=== PATIENT | male | born 1935 | race Caucasian/White ===

== ENCOUNTER 2016-10-06 12:16 | Inpatient (IN) | payer MEDICARE ==
[~2016-10-06] VITALS: Ht 198.1 cm; Wt 142.4 kg
[~2016-10-06 12:16] MED LIST: GLIPIZIDE XL5 MG PO; INDAPAMIDE2.5 MG PO; LISINOPRIL20 MG PO; LOVASTATIN40 MG PO; LUTEIN20 M1 PO; METFORMIN500 MG PO; SERTRALINE100 MG PO
[2016-10-06] MEDS ORDERED: GLUCOTROL XL10 MG PO (13:24)
[2016-10-06 13:36] VITALS: BP 116/53; PULSE 76; TEMP 98
[2016-10-06] MEDS ORDERED: SINEMET 25/101 UDTAB PO (14:28)
[2016-10-06] MEDS ORDERED: LASIX 20MG TABL20 MG PO (14:29)
[2016-10-06] MEDS ORDERED: ASPIRIN 81M81 MG/TA2 PO (14:30)
[2016-10-06] MEDS ORDERED: MELATONIN5 M1 SL (14:32)
[2016-10-06] MEDS ORDERED: ARICEPT10 MG PO (14:32)
[2016-10-06] MEDS ORDERED: MIRAPEX 1MG PO (14:33)
[2016-10-06] MEDS ORDERED: WELLBUTRIN 75MG75 MG PO (14:33)
[2016-10-06] MEDS ORDERED: REQUIP2 MG PO (14:34)
[2016-10-06] MEDS ORDERED: DESYREL 50MG50 MG PO (14:34)
[2016-10-06] MEDS ORDERED: BACTRIM DS 8001 TAB PO (14:35)
[2016-10-06] MEDS ORDERED: LUTEIN20 M1 PO (14:35)
[2016-10-06 15:23] LABS: BASO % 0.3 % (0.0-2.0); EOS # 0.1 (0.0-0.7); EOS % 0.6 % (0-4.0); GRAN # 8.7 (1.4-6.5); GRAN % 80.6 % (42.2-75.2); HEMATOCRIT 48.7 % (42.0-52.0); HEMOGLOBIN 16.1 g/dl (13.5-18.0); LYMPH # 0.9 (1.2-3.4); LYMPH % 8.4 % (20.0-51.0); MEAN CELL VOLUME 94 fl (80.0-100.0); MEAN CORPUSCULAR HEMOGLOBIN 31 pg (27.0-31.0); MEAN CORPUSCULAR HGB CONC 33 g/dl (33.0-37.0); MEAN PLATELET VOLUME 9.6 fl (7.4-10.4); MONO % 9.4 % (1.7-9.3); PLATELET COUNT 142 K/mm3 (130-400); RED BLOOD COUNT 5.18 M/mm3 (4.20-5.60); REDCELL DISTRIBUTION WIDTH-CV 12.9 % (11.5-14.5); WHITE BLOOD COUNT 10.7 K/mm3 (4.8-10.8)
[2016-10-06 15:36] LABS: ADJUSTED CALCIUM 8.7 mg/dL (8.4-10.2); ALBUMIN 3.7 gm/dL (3.5-5.0); BILIRUBIN,TOTAL 0.8 mg/dL (0.0-1.0); CALCIUM 8.5 mg/dL (8.4-10.2); CREATININE, serum 1.4 mg/dL (0.66-1.25); POTASSIUM 4.1 mmol/L (3.4-5.0); TOTAL PROTEIN 7.2 gm/dL (6.4-8.2)
[2016-10-06 15:54] LABS: C-REACTIVE PROTEIN 25.4 mg/dL (0.0-0.9)
[2016-10-06 16:20] VITALS: BP 121/68; PULSE 61; TEMP 98
[2016-10-06 18:14] LABS: ERYTHROCYTE SEDIMENTATION RATE 118 mm/hr (0-30)
[2016-10-06 19:27] VITALS: BP 111/48; PULSE 70; TEMP 99.7
[2016-10-06 23:09] VITALS: BP 83/30; PULSE 74; TEMP 98.8
[2016-10-06 23:10] LABS: PH 5 (5-8); SQUAMOUS EPITHELIAL 0-2 /hpf; URINE APPEARANCE Clear; URINE BACTERIA None Seen /hpf; URINE BILIRUBIN Negative (NEGATIVE); URINE BLOOD 1+ (NEGATIVE); URINE COLOR Yellow; URINE GLUCOSE Negative (NEGATIVE); URINE KETONE Negative (NEGATIVE); URINE UROBILINOGEN Negative (NEGATIVE); URINE WBC 0-2 /hpf
[2016-10-06 23:38] VITALS: BP 108/48; PULSE 74
[2016-10-07 03:10] VITALS: BP 110/60; PULSE 88; TEMP 98.8
[2016-10-07 07:21] LABS: BASO % 0.3 % (0.0-2.0); EOS # 0.1 (0.0-0.7); EOS % 0.5 % (0-4.0); GRAN # 10.3 (1.4-6.5); GRAN % 86.7 % (42.2-75.2); LYMPH # 0.5 (1.2-3.4); LYMPH % 4.3 % (20.0-51.0); MEAN CELL VOLUME 95 fl (80.0-100.0); MEAN CORPUSCULAR HGB CONC 33 g/dl (33.0-37.0); MEAN PLATELET VOLUME 9.1 fl (7.4-10.4); MONO # 0.9 (0.1-0.6); MONO % 7.4 % (1.7-9.3); PLATELET COUNT 205 K/mm3 (130-400); RED BLOOD COUNT 3.54 M/mm3 (4.20-5.60); REDCELL DISTRIBUTION WIDTH-CV 13.1 % (11.5-14.5); WHITE BLOOD COUNT 11.8 K/mm3 (4.8-10.8)
[2016-10-07 07:23] LABS: HEMATOCRIT 33.6 % (42.0-52.0); HEMOGLOBIN 11.1 g/dl (13.5-18.0); MEAN CORPUSCULAR HEMOGLOBIN 31 pg (27.0-31.0)
[2016-10-07 07:30] LABS: ADJUSTED CALCIUM 8.6 mg/dL (8.4-10.2); ALBUMIN 3.3 gm/dL (3.5-5.0); BILIRUBIN,TOTAL 0.8 mg/dL (0.0-1.0); CREATININE, serum 1.5 mg/dL (0.66-1.25); POTASSIUM 3.7 mmol/L (3.4-5.0); TOTAL PROTEIN 6.4 gm/dL (6.4-8.2)
[2016-10-07 07:45] VITALS: BP 129/48; PULSE 74; TEMP 98.8
[2016-10-07 11:48] VITALS: BP 102/47; PULSE 68; TEMP 97.6
[2016-10-07 17:45] VITALS: BP 131/65; PULSE 57; TEMP 98.4
[2016-10-07 21:16] VITALS: BP 104/44; PULSE 63; TEMP 98.1
[2016-10-07] MEDS ORDERED: MELATONIN5 M1 PO (21:40)
[2016-10-07 22:37] VITALS: BP 94/40; PULSE 62; TEMP 98.5
[2016-10-08 09:13] VITALS: BP 114/54; PULSE 65; TEMP 96.5
[2016-10-08 14:12] VITALS: BP 141/76; PULSE 83
[2016-10-08 19:16] VITALS: BP 160/69; PULSE 65; TEMP 97.7
[2016-10-08 23:44] VITALS: BP 121/43; PULSE 80; TEMP 98.6
[2016-10-09 03:42] VITALS: BP 149/67; PULSE 57; TEMP 98.6
[2016-10-09 07:20] VITALS: BP 155/75; PULSE 68; TEMP 97.2
[2016-10-09 11:00] VITALS: BP 173/78; PULSE 91; TEMP 97.8
[2016-10-09 14:07] VITALS: BP 158/69; PULSE 74
[2016-10-09 15:08] VITALS: BP 115/63; PULSE 60; TEMP 97.9
[2016-10-09 20:25] VITALS: BP 144/62; PULSE 65; TEMP 98.3
[2016-10-10 00:48] VITALS: BP 150/71; PULSE 88; TEMP 97.7
[2016-10-10 04:54] VITALS: BP 140/89; PULSE 77; TEMP 97.8
[2016-10-10 07:26] VITALS: BP 155/77; PULSE 95; TEMP 97.6
[2016-10-10 07:44] LABS: ADD PATHOLOGY DIFF REVIEW NO
[2016-10-10 07:59] LABS: MEAN CELL VOLUME 96 fl (80.0-100.0); MEAN CORPUSCULAR HGB CONC 33 g/dl (33.0-37.0); MEAN PLATELET VOLUME 8.8 fl (7.4-10.4); PLATELET COUNT 222 K/mm3 (130-400); RED BLOOD COUNT 3.74 M/mm3 (4.20-5.60); REDCELL DISTRIBUTION WIDTH-CV 13.3 % (11.5-14.5); WHITE BLOOD COUNT 10.9 K/mm3 (4.8-10.8)
[2016-10-10 08:17] LABS: HEMATOCRIT 35.7 % (42.0-52.0); HEMOGLOBIN 11.6 g/dl (13.5-18.0); MEAN CORPUSCULAR HEMOGLOBIN 31 pg (27.0-31.0)
[2016-10-10 08:22] LABS: CALCIUM 8.5 mg/dL (8.4-10.2); CREATININE, serum 1.02 mg/dL (0.66-1.25); MAGNESIUM 2.1 mg/dL (1.6-2.3); POTASSIUM 4.3 mmol/L (3.4-5.0)
[2016-10-10 09:04] LABS: ERYTHROCYTE SEDIMENTATION RATE 61 mm/hr (0-30)
[2016-10-10 10:51] LABS: C-REACTIVE PROTEIN 14.7 mg/dL (0.0-0.9)
[2016-10-10 12:00] VITALS: BP 131/71; PULSE 71; TEMP 98
[2016-10-10 14:17] LABS: BAND 3 % (0-10); NEUTROPHILS 76 % (42.0-75.2); TOTAL CELLS COUNTED 100
[2016-10-10 14:19] LABS: PLATELET ESTIMATE NORMAL (NORMAL)
[2016-10-10 16:04] VITALS: BP 129/69; PULSE 80
[2016-10-10 20:43] VITALS: BP 166/78; PULSE 72; TEMP 97
[2016-10-11] VITALS (10 sets, daily range): BP systolic 126–168; BP diastolic 71–89; PULSE 66–110; TEMP 97.7–98.7
[2016-10-11 06:37] LABS: MEAN CELL VOLUME 95 fl (80.0-100.0); MEAN CORPUSCULAR HGB CONC 33 g/dl (33.0-37.0); MEAN PLATELET VOLUME 8.8 fl (7.4-10.4); PLATELET COUNT 230 K/mm3 (130-400); RED BLOOD COUNT 3.67 M/mm3 (4.20-5.60); REDCELL DISTRIBUTION WIDTH-CV 13.5 % (11.5-14.5); WHITE BLOOD COUNT 11.8 K/mm3 (4.8-10.8)
[2016-10-11 06:46] LABS: ADD PATHOLOGY DIFF REVIEW NO; HEMOGLOBIN 11.4 g/dl (13.5-18.0); MEAN CORPUSCULAR HEMOGLOBIN 31 pg (27.0-31.0)
[2016-10-11 07:09] LABS: CALCIUM 8.8 mg/dL (8.4-10.2); CREATININE, serum 1.01 mg/dL (0.66-1.25); POTASSIUM 4.1 mmol/L (3.4-5.0)
[2016-10-11 07:29] LABS: VANCOMYCIN TROUGH 16.72 ug/mL (7.00-20.00)
[2016-10-11 07:50] LABS: C-REACTIVE PROTEIN 20.1 mg/dL (0.0-0.9)
[2016-10-11 08:58] LABS: BAND 7 % (0-10); BASOPHIL 1 % (0-2); EOSINOPHIL 2 % (0-4); METAMYELOCYTE 1 % (0-0); NEUTROPHILS 67 % (42.0-75.2); TOTAL CELLS COUNTED 100
[2016-10-11 09:20] LABS: ERYTHROCYTE SEDIMENTATION RATE 117 mm/hr (0-30)
[2016-10-12 04:10] VITALS: BP 125/61; PULSE 96; TEMP 98.3
[2016-10-12 07:37] VITALS: BP 132/70; PULSE 89; TEMP 98.1
[2016-10-12 08:15] LABS: HEMOGLOBIN 11.4 g/dl (13.5-18.0)
[2016-10-12 08:16] LABS: HEMATOCRIT 36.4 % (42.0-52.0)
[2016-10-12 11:21] VITALS: BP 126/58; PULSE 69; TEMP 97.4
[2016-10-12 15:18] VITALS: BP 111/54; PULSE 71
[2016-10-12 19:49] VITALS: BP 121/53; PULSE 80; TEMP 98.6
[2016-10-13 00:34] VITALS: BP 136/69; PULSE 77; TEMP 99
[2016-10-13 04:33] VITALS: BP 106/40; PULSE 72; TEMP 98.3
[2016-10-13 07:40] VITALS: BP 115/57; PULSE 71; TEMP 98.3
[2016-10-13 08:09] LABS: ALBUMIN 3.3 gm/dL (3.5-5.0); BILIRUBIN,TOTAL 0.6 mg/dL (0.0-1.0); CALCIUM 8.4 mg/dL (8.4-10.2); CREATININE, serum 1.17 mg/dL (0.66-1.25); POTASSIUM 4.4 mmol/L (3.4-5.0); TOTAL PROTEIN 6.5 gm/dL (6.4-8.2)
[2016-10-13] MEDS ORDERED: VANCOCIN HCL1 GM IV (08:10)
[2016-10-13] MEDS ORDERED: NORCO 325 MG-7.1 TAB PO (08:11)
[2016-10-13] MEDS ORDERED: ASPI325T6 PO (08:11)
[2016-10-13 08:12] LABS: MEAN CELL VOLUME 99 fl (80.0-100.0); MEAN CORPUSCULAR HGB CONC 31 g/dl (33.0-37.0); MEAN PLATELET VOLUME 9.1 fl (7.4-10.4); PLATELET COUNT 213 K/mm3 (130-400); RED BLOOD COUNT 3.49 M/mm3 (4.20-5.60); REDCELL DISTRIBUTION WIDTH-CV 13.4 % (11.5-14.5); WHITE BLOOD COUNT 11.9 K/mm3 (4.8-10.8)
[2016-10-13] MEDS ORDERED: HCTZ12.5TAB PO (08:12)
[2016-10-13 08:28] LABS: HEMATOCRIT 34.7 % (42.0-52.0); HEMOGLOBIN 10.8 g/dl (13.5-18.0); MEAN CORPUSCULAR HEMOGLOBIN 31 pg (27.0-31.0)
[2016-10-13 08:30] LABS: ADD PATHOLOGY DIFF REVIEW NO
[2016-10-13 10:25] LABS: BAND 15 % (0-10); BASOPHIL 1 % (0-2); EOSINOPHIL 3 % (0-4); MYELOCYTE 2 % (0-0); NEUTROPHILS 63 % (42.0-75.2); TOTAL CELLS COUNTED 100
[2016-10-13 10:26] LABS: PLATELET ESTIMATE NORMAL (NORMAL)
[2016-10-13 11:51] VITALS: BP 115/57; PULSE 71; TEMP 98.3
== END 2016-10-13 13:06 | disposition swing bed (61) | DRG 617 ==
LOC: MEDICAL 12:16 → EDBD 10-13 13:06 → MEDICAL 10-13 13:06
PROVIDERS: Internal Medicine; Orthopaedic Surgery; Physician Assistant
PROC: 0Y6X0Z1 Detachment at Right 5th Toe, High, Open Approach (ICD-10-PCS; 2016-10-11)
PROC: 0Y6V0Z1 Detachment at Right 4th Toe, High, Open Approach (ICD-10-PCS; principal; 2016-10-11 15:00)
DX: E11.69 Type 2 diabetes mellitus with other specified complication (principal); M86.171 Other acute osteomyelitis, right ankle and foot; L03.115 Cellulitis of right lower limb; I70.25 Atherosclerosis of native arteries of other extremities with ulceration; Z66 Do not resuscitate; B95.61 Methicillin susceptible Staphylococcus aureus infection as the cause of diseases classified elsewhere; B95.2 Enterococcus as the cause of diseases classified elsewhere; E11.621 Type 2 diabetes mellitus with foot ulcer; L97.519 Non-pressure chronic ulcer of other part of right foot with unspecified severity; G20 Parkinson's disease; I10 Essential (primary) hypertension; F03.90 Unspecified dementia, unspecified severity, without behavioral disturbance, psychotic disturbance, mood disturbance, and anxiety; N17.9 Acute kidney failure, unspecified; I12.9 Hypertensive chronic kidney disease with stage 1 through stage 4 chronic kidney disease, or unspecified chronic kidney disease; E11.22 Type 2 diabetes mellitus with diabetic chronic kidney disease; N18.9 Chronic kidney disease, unspecified; I87.8 Other specified disorders of veins
CPT/HCPCS: 99222-AI; 99232-AI; 99233-AI; 99239; A9284; C1751; J0713; J1644; J1815; J2250; J2405; J2543; J2704; J2765; J3010; J3370; J7030; J7050

== ENCOUNTER → 2016-10-18 | Outpatient (REF) ==
[~2016-10-18] MED LIST changes: +ARICEPT10 MG PO; +ASPI325T6 PO; +ASPIRIN 81M81 MG/TA2 PO; +BACTRIM DS 8001 TAB PO; +DESYREL 50MG50 MG PO; +GLUCOTROL XL10 MG PO; +HCTZ12.5TAB PO; +LASIX 20MG TABL20 MG PO; +MELATONIN5 M1 PO; +MELATONIN5 M1 SL; +MIRAPEX 1MG PO; +NORCO 325 MG-7.1 TAB PO; +REQUIP2 MG PO; +SINEMET 25/101 UDTAB PO; +VANCOCIN HCL1 GM IV; +WELLBUTRIN 75MG75 MG PO
[2016-10-18 12:22] LABS: C-REACTIVE PROTEIN 5.3 mg/dL (0.0-0.9)
[2016-10-18 12:24] LABS: VANCOMYCIN TROUGH 18.3 ug/mL (7.00-20.00)
== END ==
LOC: EDBD 11:25 → ZLAB.WCH 11:25
PROVIDERS: Physician Assistant
DX: Z01.89 Encounter for other specified special examinations (principal)

== ENCOUNTER → 2016-10-23 | Outpatient (REF) | LOC: ZAIV 06:20 → EDBD 10:29 | DX: Z01.89 Encounter for other specified special examinations (principal) ==

== ENCOUNTER → 2016-10-25 | Outpatient (REF) ==
[2016-10-25 11:32] LABS: C-REACTIVE PROTEIN 2.9 mg/dL (0.0-0.9)
[2016-10-25 11:40] LABS: VANCOMYCIN TROUGH 28.93 ug/mL (7.00-20.00)
== END ==
LOC: ZLAB.WCH 07:30 → EDBD 07:30
PROVIDERS: Physician Assistant
DX: Z01.89 Encounter for other specified special examinations (principal)

== ENCOUNTER → 2016-10-28 | Outpatient (REF) | LOC: ZLAB.WCH 10:48 → EDBD 10:48 | DX: Z01.89 Encounter for other specified special examinations (principal) ==

== ENCOUNTER → 2016-11-01 | Outpatient (REF) ==
[2016-11-01 12:00] LABS: VANCOMYCIN TROUGH 21.35 ug/mL (7.00-20.00)
== END ==
LOC: ZLAB.WCH 11:35 → EDBD 11:35
DX: Z01.89 Encounter for other specified special examinations (principal)

== ENCOUNTER → 2016-11-03 | Outpatient (REF) | LOC: ZLAB.WCH 11:04 → EDBD 11:04 | DX: Z01.89 Encounter for other specified special examinations (principal) ==

== ENCOUNTER → 2016-11-08 | Outpatient (REF) ==
[2016-11-08 12:29] LABS: C-REACTIVE PROTEIN 1.4 mg/dL (0.0-0.9)
[2016-11-08 12:32] LABS: VANCOMYCIN TROUGH 17.33 ug/mL (7.00-20.00)
== END ==
LOC: ZLAB.WCH 11:17 → EDBD 11:17
PROVIDERS: Physician Assistant
DX: Z01.89 Encounter for other specified special examinations (principal)

== ENCOUNTER → 2016-11-15 | Outpatient (REF) ==
[2016-11-15 20:38] LABS: VANCOMYCIN TROUGH 16.16 ug/mL (7.00-20.00)
== END ==
LOC: ZLAB.WCH 20:36
PROVIDERS: Family Medicine
DX: Z01.89 Encounter for other specified special examinations (principal)

== ENCOUNTER → 2016-11-22 | Outpatient (REF) ==
[2016-11-22 18:46] LABS: C-REACTIVE PROTEIN 0.9 mg/dL (0.0-0.9)
[2016-11-22 18:47] LABS: VANCOMYCIN TROUGH 16.6 ug/mL (7.00-20.00)
== END ==
LOC: EDBD 18:08 → ZLAB.WCH 18:08
PROVIDERS: Physician Assistant
DX: Z01.89 Encounter for other specified special examinations (principal)

== ENCOUNTER 2017-04-02 16:47 | Emergency (ER) | payer MEDICARE ==
[~2017-04-02] VITALS: Ht 198.1 cm; Wt 149.1 kg
[2017-04-02 16:50] VITALS: TEMP 98.1
[2017-04-02] MEDS ORDERED: CANA100T PO (17:21)
[2017-04-02 17:49] LABS: BASO # 0.1 (0.0-0.2); BASO % 0.7 % (0.0-2.0); EOS # 0.3 (0.0-0.7); EOS % 4.2 % (0-4.0); GRAN # 4.5 (1.4-6.5); GRAN % 64.5 % (42.2-75.2); HEMATOCRIT 38.8 % (42.0-52.0); HEMOGLOBIN 12.6 g/dl (13.5-18.0); LYMPH # 1.4 (1.2-3.4); LYMPH % 19.5 % (20.0-51.0); MEAN CELL VOLUME 96 fl (80.0-100.0); MEAN CORPUSCULAR HEMOGLOBIN 31 pg (27.0-31.0); MEAN CORPUSCULAR HGB CONC 33 g/dl (33.0-37.0); MEAN PLATELET VOLUME 9.2 fl (7.4-10.4); MONO # 0.8 (0.1-0.6); MONO % 10.8 % (1.7-9.3); PLATELET COUNT 164 K/mm3 (130-400); RED BLOOD COUNT 4.06 M/mm3 (4.20-5.60); REDCELL DISTRIBUTION WIDTH-CV 13.5 % (11.5-14.5); WHITE BLOOD COUNT 6.9 K/mm3 (4.8-10.8)
[2017-04-02 17:56] LABS: ADJUSTED CALCIUM 8.8 mg/dL (8.4-10.2); ALANINE AMINOTRANSFERASE 13 U/L (21-72); ALBUMIN 4.1 gm/dL (3.5-5.0); ALKALINE PHOSPHATASE 84 U/L (50-136); ANION GAP 10 mmol/L (7-16); BILIRUBIN,TOTAL 0.8 mg/dL (0.0-1.0); BLOOD UREA NITROGEN 30 mg/dL (9-20); CALCIUM 8.9 mg/dL (8.4-10.2); CARBON DIOXIDE 29 mmol/L (22-30); CHLORIDE 101 mmol/L (98-107); CREATININE, serum 1.19 mg/dL (0.66-1.25); GLUCOSE 168 mg/dL (74-106); POTASSIUM 4.4 mmol/L (3.4-5.0); SODIUM 139 mmol/L (137-145); TOTAL PROTEIN 7.4 gm/dL (6.4-8.2)
[2017-04-02 17:57] LABS: ACETAMINOPHEN < 10 ug/mL (10-30); SALICYLATE < 1.0 mg/dL
[2017-04-02 19:04] LABS: AMPHETAMINE URINE NEGATIVE; BARBITURATES URINE NEGATIVE; BENZODIAZEPINES URINE NEGATIVE; BUPRENORPHINE URINE NEGATIVE; METHADONE URINE NEGATIVE; OPIATES URINE NEGATIVE; OXYCODONE URINE NEGATIVE; PHENCYCLIDINE URINE NEGATIVE; PROPOXYPHENE URINE NEGATIVE; THC CANNABINOIDS URINE NEGATIVE
[2017-04-02 23:30] VITALS: BP 119/75; PULSE 56
== END 2017-04-02 23:30 | disposition home or self-care (01) ==
LOC: COL.ER 16:47
PROVIDERS: Emergency Medicine
DX: R45.851 Suicidal ideations (principal); E11.9 Type 2 diabetes mellitus without complications; G20 Parkinson's disease; I10 Essential (primary) hypertension; E78.5 Hyperlipidemia, unspecified; Z79.82 Long term (current) use of aspirin; Z79.84 Long term (current) use of oral hypoglycemic drugs

== ENCOUNTER 2018-06-22 08:36 | Emergency (ER) | payer MEDICARE ==
[~2018-06-22] VITALS: Ht 195.6 cm; Wt 147.7 kg
[~2018-06-22 08:36] MED LIST changes: +CANA100T PO
[2018-06-22 08:47] VITALS: TEMP 98.1
[2018-06-22 09:43] LABS: ALBUMIN 3.9 gm/dL (3.5-5.0); C-REACTIVE PROTEIN 2.1 mg/dL (0.0-0.9); CREATININE, serum 1.01 mg/dL (0.66-1.25); TOTAL PROTEIN 7.2 gm/dL (6.4-8.2)
[2018-06-22 09:47] LABS: BASO % 0.4 % (0.0-2.0); EOS # 0.1 (0.0-0.7); EOS % 1.4 % (0-4.0); GRAN # 7.4 (1.4-6.5); GRAN % 76.6 % (42.2-75.2); HEMATOCRIT 38.6 % (42.0-52.0); HEMOGLOBIN 12.6 g/dl (13.5-18.0); LYMPH # 1.1 (1.2-3.4); LYMPH % 11.8 % (20.0-51.0); MEAN CELL VOLUME 96 fl (80.0-100.0); MEAN CORPUSCULAR HEMOGLOBIN 31 pg (27.0-31.0); MEAN CORPUSCULAR HGB CONC 33 g/dl (33.0-37.0); MEAN PLATELET VOLUME 9.3 fl (7.4-10.4); MONO # 0.9 (0.1-0.6); MONO % 9.4 % (1.7-9.3); PLATELET COUNT 179 K/mm3 (130-400); RED BLOOD COUNT 4.03 M/mm3 (4.20-5.60); REDCELL DISTRIBUTION WIDTH-CV 13.2 % (11.5-14.5)
[2018-06-22 10:02] LABS: COLLECTION METHOD CLEAN CATCH
[2018-06-22 10:11] LABS: MUCOUS Present /lpf; PH 5 (5-8); SQUAMOUS EPITHELIAL 0-2 /hpf; URINE APPEARANCE Clear; URINE BACTERIA Rare /hpf; URINE BILIRUBIN Negative (NEGATIVE); URINE BLOOD Negative (NEGATIVE); URINE COLOR Yellow; URINE GLUCOSE Negative (NEGATIVE); URINE KETONE Negative (NEGATIVE); URINE LEUKOCYTE ESTERASE 1+ (NEGATIVE); URINE NITRATE Negative (NEGATIVE); URINE PROTEIN(semi-quant) 1+ (NEGATIVE); URINE RBC 0-2 /hpf; URINE UROBILINOGEN Negative (NEGATIVE)
[2018-06-22] MEDS ORDERED: EC-NAPROSYN375 MG PO (10:33)
[2018-06-22] MEDS ORDERED: NORCO 325 MG-7.1 TAB PO (10:33)
[2018-06-22 10:40] VITALS: BP 132/80; PULSE 86
== END 2018-06-22 11:12 | disposition home or self-care (01) ==
LOC: COL.ER 08:36
PROVIDERS: Physician Assistant
DX: M54.10 Radiculopathy, site unspecified (principal); E11.9 Type 2 diabetes mellitus without complications; I10 Essential (primary) hypertension; F32.9 Major depressive disorder, single episode, unspecified; F41.9 Anxiety disorder, unspecified; G20 Parkinson's disease; Z98.890 Other specified postprocedural states; Z88.0 Allergy status to penicillin; Z79.82 Long term (current) use of aspirin; Z79.84 Long term (current) use of oral hypoglycemic drugs
CPT/HCPCS: J1885

== ENCOUNTER 2018-08-29 08:09 | Inpatient (IN) | payer MEDICARE ==
[~2018-08-29] VITALS: Ht 198.1 cm; Wt 148.8 kg
[~2018-08-29 08:09] MED LIST changes: +EC-NAPROSYN375 MG PO
[2018-08-30 08:00] VITALS: BP 107/55; PULSE 85; TEMP 99.2
--- NOTE | 2018-08-30 08:00 | NUR ---
Pt AAOx3 in bed stating feeling weaker in the upper extremities while moving and raising arms - Hospitalist team aware. Call light within reach, no stated concerns at this time
[2018-08-30 12:00] VITALS: BP 107/59; PULSE 94; TEMP 98.6
[2018-08-30 17:23] LABS: ARTERIAL BLD GAS O2 SATURATION 93.6 % (92-100); ARTERIAL BLD GAS TCO2 CT 31.2; ARTERIAL BLOOD GAS BASE EXCESS 4.6 (-2-2); ARTERIAL BLOOD GAS HCO3 29.7 meq/L (22-26); ARTERIAL BLOOD GAS PCO2 46.7 mmHg (35-45); ARTERIAL BLOOD GAS PO2 71.2 mmHg (80-100); ARTERIAL BLOOD GAS pH 7.42 (7.35-7.45)
[2018-08-30 18:05] LABS: ALBUMIN 4.1 gm/dL (3.5-5.0); BILIRUBIN,TOTAL 0.9 mg/dL (0.0-1.0); CALCIUM 8.7 mg/dL (8.4-10.2); CREATININE, serum 1.06 mg/dL (0.66-1.25); POTASSIUM 4.3 mmol/L (3.4-5.0); TOTAL PROTEIN 7.6 gm/dL (6.4-8.2)
[2018-08-30 18:06] LABS: CALCIUM 8.1 mg/dL (8.4-10.2); CREATININE, serum 0.99 mg/dL (0.66-1.25); MAGNESIUM 2.1 mg/dL (1.6-2.3); POTASSIUM 4.3 mmol/L (3.4-5.0); TSH w REFLEX 1.07 uIU/mL (0.465-4.680)
[2018-08-30 19:14] VITALS: BP 110/77; PULSE 84; TEMP 98.3
--- NOTE | 2018-08-30 20:00 | NUR ---
PT IN BED WITH HOB AT 45 DEGREE ANGLE. PT HAS DAUGHTER IN ROOM. PT HAD INCONTINENT BOWEL MOVEMENT AND VOIDED. COMPLETE BED CHANGE DONE, WELL , CLEANING PT AND CHANGED GOWN. PT HAS EXP WHEEZING, HAS O2 ON AT 3L/NC. PT DENIES PAIN OR DISCOMFORT. NO FURTHER NEEDS AT THIS TIME.
[2018-08-30 20:54] LABS: TROPONIN-I 0.04 ng/mL (0.000-0.035)
[2018-08-30 22:11] LABS: BASO % 0.2 % (0.0-2.0); EOS # 0.1 (0.0-0.7); EOS % 0.7 % (0-4.0); GRAN # 6.7 (1.4-6.5); GRAN % 77.2 % (42.2-75.2); HEMATOCRIT 31.4 % (42.0-52.0); LYMPH # 0.9 (1.2-3.4); LYMPH % 9.9 % (20.0-51.0); MEAN CELL VOLUME 98 fl (80.0-100.0); MEAN CORPUSCULAR HEMOGLOBIN 31 pg (27.0-31.0); MEAN CORPUSCULAR HGB CONC 32 g/dl (33.0-37.0); MEAN PLATELET VOLUME 9.5 fl (7.4-10.4); MONO % 11.5 % (1.7-9.3); PLATELET COUNT 171 K/mm3 (130-400); REDCELL DISTRIBUTION WIDTH-CV 13.3 % (11.5-14.5)
[2018-08-30 22:14] LABS: BASO % 0.4 % (0.0-2.0); EOS # 0.1 (0.0-0.7); EOS % 0.6 % (0-4.0); GRAN # 8.2 (1.4-6.5); GRAN % 78.4 % (42.2-75.2); HEMATOCRIT 36.7 % (42.0-52.0); HEMOGLOBIN 11.4 g/dl (13.5-18.0); LYMPH % 9.4 % (20.0-51.0); MEAN CELL VOLUME 99 fl (80.0-100.0); MEAN CORPUSCULAR HEMOGLOBIN 31 pg (27.0-31.0); MEAN CORPUSCULAR HGB CONC 31 g/dl (33.0-37.0); MEAN PLATELET VOLUME 9.6 fl (7.4-10.4); MONO # 1.1 (0.1-0.6); MONO % 10.6 % (1.7-9.3); PLATELET COUNT 223 K/mm3 (130-400); RED BLOOD COUNT 3.72 M/mm3 (4.20-5.60); REDCELL DISTRIBUTION WIDTH-CV 13.4 % (11.5-14.5)
[2018-08-31 00:31] VITALS: BP 109/67; PULSE 83; TEMP 97.8
[2018-08-31 04:00] VITALS: BP 118/53; PULSE 90; TEMP 97.7
--- NOTE | 2018-08-31 06:44 | NUR ---
UNEVENTFUL NIGHT, PT HAD SLEPT WELL AND DENIED PAIN EVERYTIME ASKED. PT WAS GIVEN A SNACK DURING THE NIGHT. CALL LIGHT WITHIN REACH.
[2018-08-31 08:29] VITALS: BP 110/61; PULSE 81; TEMP 98.1
[2018-08-31 13:00] VITALS: BP 127/59; PULSE 83; TEMP 97.6
--- NOTE | 2018-08-31 14:41 | NUR ---
DENISE met with the patient to discuss a discharge plan. The patient [place] outside [facility]. The patient has a wheelchair and he reports he uses it daily and he also has a walker. The patient reports that he receives nursing services through [facility]. The patient reports his daughter Meron picks up his medication from a pharmacy in [place], but the patient did not know the name of the pharmacy. The patient does not have advanced directives in the EMR, but stated he does have them completed. Upon discharge the patient plans to return home. DENISE will continue to follow.
--- NOTE | 2018-08-31 15:10 | NUR ---
DENISE spoke with the patient's daughter, Meron regarding the pharmacy. It is [facility] in [place]. Meron express interest in the patient going to [facility]. Physical therapy recommendations for the patient is for are for post acute rehab. DENISE will discuss the options with the patient.
--- NOTE | 2018-08-31 15:43 | NUR ---
DENISE presented the patient choice form to the patient. The patient chose [facility] and declined to chose a second option. The patient signed the form and DENISE provided a copy to the patient. The original was placed in the patient's chart. DENISE faxed the referral to [facility]. DENISE will continue to follow.
[2018-08-31 16:00] VITALS: BP 119/91; PULSE 76; TEMP 98.5
--- NOTE | 2018-08-31 18:00 | NUR ---
Short of breath with activity. O2 on per nasal cannula. RT treatments done. CXR done. Repositions in bed with two staff assist.
[2018-08-31 19:04] VITALS: BP 103/60; PULSE 84; TEMP 97.6
--- NOTE | 2018-09-01 00:03 | NUR ---
Shift assessment complete. Patient supine in bed, denies pain. Scheduled medication given. Will continue to assess.
[2018-09-01 01:04] VITALS: BP 114/59; PULSE 77
[2018-09-01 04:00] VITALS: BP 130/79; PULSE 76; TEMP 97.9
--- NOTE | 2018-09-01 04:15 | NUR ---
Patient lying in bed, sleeping. Appears comfortable. Will continue to assess comfort/pain.
--- NOTE | 2018-09-01 09:30 | NUR ---
Assessment complete.patient awake,sitting up in bed eating breakfast.crackles noted to bilat lung bases on auscultation.oxygen increased to 2L/nc from patientL/nc d/t SOB on exertion. denies pain or discomfort at this time.2+ pitting edema to BLE.all meds given.patient denies any other needs at this time.bed alarm on.call light in reach
[2018-09-01 10:07] VITALS: BP 119/71; PULSE 99; TEMP 97.7
[2018-09-01 11:47] VITALS: BP 128/68; PULSE 84; TEMP 97.9
[2018-09-01 14:26] LABS: INR 1.1 (0.8-3.0)
--- NOTE | 2018-09-01 15:43 | NUR ---
PT RESTING IN BED AT THIS TIME.BILAT FEET ELEVATED.DRSG CHANGED.PT DENIES ANY NEEDS AT THIS TIME.WILL CONTINUE TO MONITOR.CALL LIGHT IN REACH
--- NOTE | 2018-09-01 15:45 | NUR ---
O2 BACK TO 1L/NC.SATS AT 96%.
[2018-09-01 16:48] VITALS: BP 120/81; PULSE 80; TEMP 98.3
--- NOTE | 2018-09-01 19:14 | NUR ---
pt has had an unevenful day. rounded on him and changed some meds.patient has increased work of breathing with exertion.Oxygen at 1L/nc.Hygiene provided.patient dressing to BLE changed.no needs voiced at this time.call light in reach
[2018-09-01 19:34] VITALS: BP 134/68; PULSE 99; TEMP 97.2
[2018-09-02 00:26] VITALS: BP 103/51; PULSE 56; TEMP 97.7
--- NOTE | 2018-09-02 01:54 | NUR ---
Alert and oriented, and able to make needs known. Denies having pain and discomfort. LS CTA. Respirations even and unlabored. Denies having SOB and dyspnea. On oxygen at 2 L/min via NC. Cushions on oxygen tubing to protect ears. Heart with regular rate and rhythm. Capillay refill < 3 sec. Non-tenting skin turgor. Peripheral INT to right hand, patent, and without redness, warmth, drainage, and pain. 3+ edema RLE, 2+ edema LLE. Pedal and radial pulses are present and equal bilaterally. Bowel sounds are active x 4. Abodmen is soft and non-tender. Multiple skin issues: multiple black/brown scabs to bilareal knees. Reports he got them when he was on the floor from the carpet. No open areas to knees. Areas without redness, warmth, drainage, and swelling. Left bourgeois-2 open areas. Distal open area has yellow slough present. Area cleansed with NS, tegaderm palced on top. Left great toe-black/brown scab to plantar side, 2 sores to medial side of toe, distal one is open with clear drainage. Left 2nd toe-marcial/brown scab to top of toe and plantar of toe. Left 4th toe-black/brown scab to toe. Left foot is very dry, scaley, and flaky. Cleansed with NS, pat dried, and applied gauze wrap. Right 1st toe-black/brown scat to top and plantar toe. Right 2nd toe-sore to top, bleeding. 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 Cleansed with NS, and applied gauze wrap. Denies having numbness, pain, and discomfort to BLE. Unable to wiggle toes. Asked about wound care for patient, and patient reports that sores started with the braces that he wears to bilateral legs. Reports it caused sores and he was told to leave braces off and clean areas with normal saline. Resting in bed with eyes closed at this time. Call light is within reach.
[2018-09-02 04:43] VITALS: BP 126/86; PULSE 76; TEMP 97.9
[2018-09-02 06:02] LABS: HEMOGLOBIN 10.7 g/dl (13.5-18.0); MEAN CELL VOLUME 99 fl (80.0-100.0); MEAN CORPUSCULAR HEMOGLOBIN 31 pg (27.0-31.0); MEAN CORPUSCULAR HGB CONC 31 g/dl (33.0-37.0); MEAN PLATELET VOLUME 9.2 fl (7.4-10.4); PLATELET COUNT 221 K/mm3 (130-400); RED BLOOD COUNT 3.47 M/mm3 (4.20-5.60); REDCELL DISTRIBUTION WIDTH-CV 13.3 % (11.5-14.5)
[2018-09-02 06:11] LABS: HEMATOCRIT 34.2 % (42.0-52.0)
[2018-09-02 06:24] LABS: CALCIUM 8.6 mg/dL (8.4-10.2); MAGNESIUM 2.2 mg/dL (1.6-2.3); POTASSIUM 4.3 mmol/L (3.4-5.0)
--- NOTE | 2018-09-02 06:40 | NUR ---
Patient has been repositioned in bed throughout the night. Has been using urinal indpendently, but has spilled in the bed a little. Patient got upset with himself and states that he is feeling more depressed with himself this morning. During the night patient was in a good mood and joking and laughing. Reports he is upset that he is not getting stronger this morning. Patient reassured that it takes time to get stronger after having pneumonia and CHF. This nurse stayed with patient for a while. Patient stated he felt better afterwards. Resting in bed at this time. Call light is within reach.
[2018-09-02 08:57] VITALS: BP 116/90; PULSE 83; TEMP 98.3
--- NOTE | 2018-09-02 10:16 | NUR ---
Report given to MICHELE Guerra.
[2018-09-02 12:58] VITALS: BP 124/68; PULSE 72; TEMP 98.1
--- NOTE | 2018-09-02 14:45 | NUR ---
Patient accepted by [facility] bed tomorrow. SW went and discussed this with patient. He reports he will call his ride for tomorrow to be here in the morning by 10 am. SW offered to call but he denied. Will follow up.
[2018-09-02 17:02] VITALS: BP 139/84; PULSE 70; TEMP 97.3
--- NOTE | 2018-09-02 18:42 | NUR ---
Pt has been resting on and off throughout the day. He has remained free of pain. Pt is sitting up in the bed wating his dinner at this time and he denies further needs. Call light withn reach.
--- NOTE | 2018-09-02 19:33 | NUR ---
Report given to MICHELE Padron.
[2018-09-02 19:50] VITALS: BP 128/73; PULSE 84; TEMP 97.6
--- NOTE | 2018-09-02 20:50 | NUR ---
Shift assessment complete. Pt resting in bed, awake, a&o, cooperative c cares. Pt denies pain or other c/o at this time. INT patent. Tele in place. O2 per NC. Pt denies needs. Call light in reach, bed alarm on. Will monitor.
[2018-09-03 00:10] VITALS: BP 125/66; PULSE 79; TEMP 97.8
[2018-09-03 06:26] LABS: INR 1.2 (0.8-3.0); PROTHROMBIN TIME 13.4 SECONDS (9.7-12.8)
[2018-09-03 06:31] LABS: CALCIUM 8.5 mg/dL (8.4-10.2); CREATININE, serum 0.89 mg/dL (0.66-1.25); MAGNESIUM 2.1 mg/dL (1.6-2.3); POTASSIUM 4.2 mmol/L (3.4-5.0)
[2018-09-03 07:53] VITALS: BP 134/58; PULSE 83; TEMP 97.7
[2018-09-03] MEDS ORDERED: IPRATROPIUM BROM3 M1 IH ×2 (09:18→09:19)
[2018-09-03] MEDS ORDERED: COUMADIN 5MG5 MG/TAB PO (09:19)
[2018-09-03] MEDS ORDERED: LOPRESSOR 225 MG/TAB PO (09:19)
[2018-09-03] MEDS ORDERED: LOVENOX150 MG/ML SQ (09:19)
[2018-09-03] MEDS ORDERED: ZESTRIL 10MG10 MG PO (09:20)
[2018-09-03] MEDS ORDERED: ASPIRIN 81M81 MG/TA2 PO (09:20)
[2018-09-03] MEDS ORDERED: TYLENOL 325MG325 MG PO (09:25)
[2018-09-03] MEDS ORDERED: LASIX 20MG TABL20 MG PO (09:26)
--- NOTE | 2018-09-03 11:11 | NUR ---
[facility] [place], Reviewed H&P 0730 vitals signs stable 0800 shift assessment complete pt restig in bed denies pain 02 on a 2L. R loger leg dressing coming off, new gauze drssing applied. Rt. Leg would red, and no drainage. Pt denies pain IV InT r Arm intact no redness. 0900 Hygiene are completed. Pt tolerates activity well 1000 Doctor rounding. see chart for new orders 1100 assessment unchanged, pt resting in recliner, denies pain, call light in place.
[2018-09-03 11:31] VITALS: BP 134/58; PULSE 83; TEMP 97.7
--- NOTE | 2018-09-03 12:10 | NUR ---
Pt discharged at this time. Report called to [facility]. LF INT discontinued with the catheter tip intact. Pt escourted out via WC with tech. Petra
--- NOTE | 2018-09-03 14:05 | NUR ---
SW and SW student presented IM to patient. Contents were discussed and the patient was agreeable and signed with an X and SW witnessed the signature. A copy was given to the patient and the original was put on the chart.
--- NOTE | 2018-09-03 14:09 | NUR ---
SW and SW student met with patient after clinical rounding to confirm he had a ride arranged. Patient reports his daughter had set it up and they would be here sometime this am. SW attempted to call daughter to confirm. Faye at [facility] informed of DC today, doc to doc done yesterday. Nurse to nurse number provided to patients nurse and discharge orders faxed. Patient is DC today to [facility] via private car.
== END 2018-09-03 12:12 | disposition swing bed (61) | DRG 193 ==
LOC: COL.ER 08:09 → MEDICAL 12:10
PROVIDERS: Family Medicine; Internal Medicine Cardiovascular Disease; Nurse Practitioner Family; ADMIT Internal Medicine
DX: J18.9 Pneumonia, unspecified organism (principal); I50.33 Acute on chronic diastolic (congestive) heart failure; I48.1 Persistent atrial fibrillation; I11.0 Hypertensive heart disease with heart failure; I48.91 Unspecified atrial fibrillation; E11.42 Type 2 diabetes mellitus with diabetic polyneuropathy; I06.0 Rheumatic aortic stenosis; Z89.421 Acquired absence of other right toe(s); I87.8 Other specified disorders of veins; I73.9 Peripheral vascular disease, unspecified
CPT/HCPCS: 99222-AI; 99232-AI; 99233-AI; A4216; J0696; J1650; J1815; J7030

== ENCOUNTER → 2018-09-16 | Outpatient (REF) ==
[~2018-09-16] MED LIST changes: +COUMADIN 5MG5 MG/TAB PO; +IPRATROPIUM BROM3 M1 IH; +LOPRESSOR 225 MG/TAB PO; +LOVENOX150 MG/ML SQ; +TYLENOL 325MG325 MG PO; +ZESTRIL 10MG10 MG PO
== END ==
LOC: ZLAB.WCH 16:25
DX: Z01.89 Encounter for other specified special examinations (principal)

== ENCOUNTER 2018-10-30 05:19 | Inpatient (IN) | payer MEDICARE ==
[~2018-10-30] VITALS: Ht 198.1 cm; Wt 123.5 kg
[~2018-10-30 05:19] MED LIST changes: -ALBUTEROL0.83 MG/ML IH; -DEEP SEA 45 ML45 ML NS; -GLUCOTROL 5M5 MG/TAB PO; -LASIX 40MG TABL40 MG PO; -LEVEMIR100 U/ML SQ; -LOZOL 2.5M2.5 MG/TAB PO; -MELAT3MGTAB PO; -MEVACOR40 MG PO; -MULTIPLE VITAMI1 CAP PO; -PROTONIX 40MG T40 MG PO; -TOPROL XL 25MG25 MG PO; -VENELEX OINTMEN60 GM TOP; -VITAMIN C500 MG PO; -XARELTO20 MG PO; -ZOLOFT 100MG100 MG PO
--- NOTE | 2018-10-30 06:34 | NUR ---
Arrived to medical floor via EMS. Assessment complete. Lungs all medley exp. wheezing. Heart sounds regular murmur heard. Bowels active x4. Pulses present throughout. Bilateral lower leg edema +3. Coccyx erythema present. Bilateral knees abrasions present. Bilateral feet/toes several ulcers/wounds present with gauze dressing in place. Patient is alert and orientated. Denies any pain. Orientated to medical floor. Call light in reach.
[2018-10-30] MEDS ORDERED: ALBUTEROL0.83 MG/ML IH ×2 (06:42→06:43)
[2018-10-30] MEDS ORDERED: VENELEX OINTMEN60 GM TOP (06:43)
[2018-10-30 06:44] VITALS: BP 132/66; PULSE 95; TEMP 97.2
[2018-10-30] MEDS ORDERED: MULTIPLE VITAMI1 CAP PO (06:44)
[2018-10-30] MEDS ORDERED: PROTONIX 40MG T40 MG PO (06:45)
[2018-10-30] MEDS ORDERED: DEEP SEA 45 ML45 ML NS (06:46)
[2018-10-30] MEDS ORDERED: GLUCOTROL 5M5 MG/TAB PO (06:47)
[2018-10-30] MEDS ORDERED: LOZOL 2.5M2.5 MG/TAB PO (06:49)
[2018-10-30] MEDS ORDERED: LEVEMIR100 U/ML SQ ×2 (06:49→06:57)
[2018-10-30] MEDS ORDERED: MEVACOR40 MG PO (06:52)
[2018-10-30] MEDS ORDERED: MELAT3MGTAB PO (06:53)
[2018-10-30] MEDS ORDERED: ZOLOFT 100MG100 MG PO (06:54)
[2018-10-30] MEDS ORDERED: XARELTO20 MG PO (06:54)
[2018-10-30] MEDS ORDERED: VITAMIN C500 MG PO (06:55)
[2018-10-30] MEDS ORDERED: LASIX 40MG TABL40 MG PO (06:55)
[2018-10-30] MEDS ORDERED: TOPROL XL 25MG25 MG PO (06:56)
--- NOTE | 2018-10-30 07:37 | NUR ---
Dressing to toes removed and open to air. To be redressed by MICHELE Manrique. NOLA Pierre in room to assess patient. Report given to MICHELE Manrique
[2018-10-30 07:43] VITALS: BP 130/80; PULSE 79; TEMP 98.1
[2018-10-30 08:00] LABS: BASO # 0.1 (0.0-0.2); BASO % 0.7 % (0.0-2.0); EOS # 0.4 (0.0-0.7); EOS % 5.5 % (0-4.0); GRAN # 4.5 (1.4-6.5); HEMATOCRIT 33.3 % (42.0-52.0); HEMOGLOBIN 10.1 g/dl (13.5-18.0); LYMPH # 1.4 (1.2-3.4); MEAN CELL VOLUME 96 fl (80.0-100.0); MEAN CORPUSCULAR HEMOGLOBIN 29 pg (27.0-31.0); MEAN CORPUSCULAR HGB CONC 30 g/dl (33.0-37.0); MEAN PLATELET VOLUME 9.7 fl (7.4-10.4); MONO # 0.8 (0.1-0.6); MONO % 11.4 % (1.7-9.3); PLATELET COUNT 164 K/mm3 (130-400); RED BLOOD COUNT 3.48 M/mm3 (4.20-5.60); REDCELL DISTRIBUTION WIDTH-CV 15.1 % (11.5-14.5)
[2018-10-30 08:17] LABS: CREATININE, serum 1.32 (0.66-1.25); MAGNESIUM 2.1 mg/dL (1.6-2.3); PHOSPHOROUS 3.8 mg/dL (2.5-4.5); POTASSIUM 3.7 mmol/L (3.4-5.0)
[2018-10-30 08:29] LABS: TROPONIN-I 0.026 ng/mL (0.000-0.035)
[2018-10-30 08:47] LABS: THYROID STIMULATING HORMONE 2.38 uIU/mL (0.465-4.680)
--- NOTE | 2018-10-30 08:55 | NUR ---
Pt lying in bed. Alert and oriented. Denies any pain. Breathing even and unlabored denies shortness of breath. Expiratory wheezes on auscultation. Completed morning assessment. There are abrasions and scabs to toes on both feet. Abrasions and scabs to bilateral knees. Wound consult has been completed will apply dressing as ordered. RAILROAD AUDITOR in to complete bed bath. Denies any needs.
--- NOTE | 2018-10-30 09:48 | NUR ---
Initial visit; Patient thanked Beauty Parlor Cleaner for offering spiritual Care and keeping him in wharfmaster's prayers.
[2018-10-30 09:57] LABS: ARTERIAL BLD GAS O2 SATURATION 94.1 % (92-100); ARTERIAL BLD GAS TCO2 CT 31.3; ARTERIAL BLOOD GAS BASE EXCESS 4.7 (-2-2); ARTERIAL BLOOD GAS HCO3 29.8 meq/L (22-26); ARTERIAL BLOOD GAS PCO2 46.5 mmHg (35-45); ARTERIAL BLOOD GAS pH 7.43 (7.35-7.45)
[2018-10-30 11:15] VITALS: BP 126/63; PULSE 79; TEMP 97.7
--- NOTE | 2018-10-30 14:00 | NUR ---
Pt iv infiltrated, removed IV, no redness noted. Mild swelling noted. Denies pain to site. Inserted new IV to LF. Completed dressing change as ordered. Denies any pain. Reminded pt he is on FR. Denies any needs at this time.
[2018-10-30 15:23] VITALS: BP 103/60; PULSE 89; TEMP 98.3
--- NOTE | 2018-10-30 16:35 | NUR ---
DENISE and DENISE student met with the patient to discuss discharge plan. The patient was recently discharged from [facility] and discharged back home with home health. The patient lives alone in [place]. He states that his daughter, Rebeka, lives in [place] and comes to visit and check in on him 1-3 times a week. He states that he has neighbors that come and help him twice a day. He reports needing assistance with ADLs and has a cane, walker, and wheelchair. He states that he was primarily using the wheelchair before hospitalization. He states that he receives home health for PT/OT through [facility]. DENISE contacted Milvia at at [facility] and confirmed that the patient has services through them for PT/OT/chcf/Social Work. Milvia also confirmed that the patient receives a bath aide through [facility], house keeping through [facility], and that the patient's neighbors come in the morning and evening to give the patient his insulin. Milvia reports that their hospice social worker is working on getting the patient's hours increased at [facility] and that she has sent a referral to the [facility] for the patient. Milvia requested the patient's H&P. DENISE purdy faxed the patient's H&P to Milvia. The patient's PCP is Dr. Johan Golden and he receives his medications from a pharmacy in [place] or [facility]. He reports that his daughter will fish bait picker his medications from [place] and that he has no difficulties obtaining his meds. The patient does not have advanced directives in EMR, but he states that he does have them completed and that his daughter, Rebeka, is his DPOA-HC. At this time, the patient reports that he plans and would like to return home upon discharge. PT/OT have been ordered. DENISE will need to get in contact with his daughter and continue to follow.
--- NOTE | 2018-10-30 18:53 | NUR ---
Hand off report given to Avril BAUTISTA. Pt lying in bed eyes closed, breathing even and unlabored.
[2018-10-30 20:22] VITALS: BP 102/62; PULSE 83; TEMP 97.9
--- NOTE | 2018-10-30 21:15 | NUR ---
Patient assessed at this time. Denies having pain and discomfort. LS CTA. Respirations even and unlabored. Denies SOB and dyspnea. On oxygen at 2 L/min via NC. HRR. BSAx4. 2+ edema BLE. Dressings to BLE are CDI. Not removed. Scabs to bilateral knees, open to air, no drainge. Patient scratching testicles, causing bleeding. Two small open areas. Cleansed and moisture barrier applied. Left forearm INT patent, and without redness, warmth, swelling, and pain. Staff assists with repositioning in bed every two hours. In bed watching TV at this time. Denies having any needs or concerns. Call light is within reach.
--- NOTE | 2018-10-30 22:40 | NUR ---
Patient's daughter here. Updated on possible TIFFANIE procedure to be done. Explained procedure, purpose, etc. All questions answered. Voices no furhter questsions or concerns at this time. Updated emergency contact list per patient, as his daughter is his DPOA. Requested DPOA paperwork for chart as well. Daughter requests to be called and updated when a time is known for procedure. Patient will be kept NPO after midnight, and voices understanding of this. Given sandwich at this time as requested. Voices no other needs or concerns at this time. Call light is within reach.
[2018-10-31] VITALS (7 sets, daily range): BP systolic 94–118; BP diastolic 50–66; PULSE 69–89; TEMP 97.1–98.3
--- NOTE | 2018-10-31 02:48 | NUR ---
Resting in bed with eyes closed at this time. Has been NPO after midnight in case TIFFANIE is done today. Patient has voiced no other needs or concerns so far this shift. Staff continues to assist with repositioning during rounds. Dressings to BLE are CDI. Call light is within reach.
--- NOTE | 2018-10-31 06:20 | NUR ---
Patient has denied having pain and discomfort throughout the night. Has voiced no needs or concerns. Has been using bedside urinal. Staff assists with repositioning in bed during rounds. Wearing oxygen at 2 L/min via NC. Denies having SOB and dyspnea. Dressings to BLE are CDI. Patient has remained NPO since midnight, except did take medications with sips of water. Resting in bed with eyes closed at this time. Call light is within reach.
[2018-10-31 06:57] LABS: BASO % 0.3 % (0.0-2.0); EOS # 0.3 (0.0-0.7); EOS % 4.3 % (0-4.0); GRAN # 4.8 (1.4-6.5); GRAN % 66.1 % (42.2-75.2); LYMPH # 1.3 (1.2-3.4); LYMPH % 17.5 % (20.0-51.0); MEAN CELL VOLUME 95 fl (80.0-100.0); MEAN CORPUSCULAR HGB CONC 31 g/dl (33.0-37.0); MEAN PLATELET VOLUME 9.6 fl (7.4-10.4); MONO # 0.8 (0.1-0.6); MONO % 11.5 % (1.7-9.3); PLATELET COUNT 140 K/mm3 (130-400); REDCELL DISTRIBUTION WIDTH-CV 15.2 % (11.5-14.5)
[2018-10-31 06:59] LABS: HEMATOCRIT 31.3 % (42.0-52.0); HEMOGLOBIN 9.6 g/dl (13.5-18.0); MEAN CORPUSCULAR HEMOGLOBIN 29 pg (27.0-31.0)
[2018-10-31 07:31] LABS: CALCIUM 8.6 mg/dL (8.4-10.2); CHOLESTEROL RISK RATIO 3.4; CREATININE, serum 1.31 (0.66-1.25); POTASSIUM 3.7 mmol/L (3.4-5.0)
--- NOTE | 2018-10-31 09:50 | NUR ---
Pt sitting in chair. Currently NPO for possible TIFFANIE. Blood pressure 99/55. Held lasix and blood pressure medication. Pt denies any pain. Bilateral lower extremity edema better today. Denies any shortness of breath. Completed morning assessment. Breath sounds clear on auscultation. Dressing clean dry and intact to lower extremity. Dressing change to be completed on Sunday and Fridays. Denies any needs at this time. Call light in reach.
--- NOTE | 2018-10-31 16:05 | NUR ---
DENISE met with the patient to review discharge plan and to discuss the clinical teams and therapies recommendation of SNF. The patient reports that he would be agreeable to SNF. The patient reports that he would prefer [facility]. DENISE presented and explained the patient choice form. The patient preferred 1) [facility] 2) [facility]. Patient choice form signed by the patient and he was provided a copy. DENISE contacted Zonia at [facility]. Zonia reports that they do have beds at this time and she will take the referral to their provider. DENISE contacted and faxed a referral to [facility]. DENISE awaiting their screenings. The patient did request that DENISE contact his daughter, Rebeka. DENISE contacted and updated the patient's daughter on the plan. Pat reports that she is supportive of the plan and that she would be able to provide transportation to [facility], if the patient is accepted there. SW to continue to follow.
--- NOTE | 2018-10-31 18:30 | NUR ---
Tried to contact pts daughter Neida to discuss procedure tomorrow. Straight to voicemail. Left message with front desk team member phone number. Pt sitting in chair. Breathing even and unlabored. Denies shortness of breath. Will need to be scheduled for TIFFANIE and consult with anesthia, will pass on to night nurse.
--- NOTE | 2018-10-31 21:30 | NUR ---
Pt resting in bed, no C/O pain at this time, shift assessments complete, left Pt call light in reach, bed in lowest position.
[2018-11-01] VITALS (10 sets, daily range): BP systolic 99–129; BP diastolic 47–71; PULSE 72–99; TEMP 97.5–98
--- NOTE | 2018-11-01 05:35 | NUR ---
Pt slept well during the night, no C/O pain, Vs have remained stable.
[2018-11-01 06:02] LABS: BASO % 0.5 % (0.0-2.0); EOS # 0.4 (0.0-0.7); EOS % 4.9 % (0-4.0); GRAN # 5.2 (1.4-6.5); GRAN % 69.7 % (42.2-75.2); HEMOGLOBIN 10.1 g/dl (13.5-18.0); LYMPH % 13.8 % (20.0-51.0); MEAN CELL VOLUME 96 fl (80.0-100.0); MEAN CORPUSCULAR HEMOGLOBIN 29 pg (27.0-31.0); MEAN CORPUSCULAR HGB CONC 30 g/dl (33.0-37.0); MONO # 0.8 (0.1-0.6); MONO % 10.7 % (1.7-9.3); PLATELET COUNT 152 K/mm3 (130-400); RED BLOOD COUNT 3.46 M/mm3 (4.20-5.60)
[2018-11-01 06:16] LABS: CALCIUM 8.8 mg/dL (8.4-10.2); CREATININE, serum 1.25 (0.66-1.25); MAGNESIUM 2.2 mg/dL (1.6-2.3)
[2018-11-01 06:24] LABS: HEMATOCRIT 33.3 % (42.0-52.0)
--- NOTE | 2018-11-01 08:30 | NUR ---
Pt lying in bed, asking about procedure. Answered all questions about time of procedure. Pt anxious, offered reassurance. Completed morning assessment. Denies any pain. Will continue to monitor.
--- NOTE | 2018-11-01 09:00 | NUR ---
Took pt down to procedure.
--- NOTE | 2018-11-01 11:30 | NUR ---
Changed dressing to toes and knees per wound care consult instructions.
[2018-11-01] MEDS ORDERED: LASIX 40MG TABL40 MG PO (13:42)
--- NOTE | 2018-11-01 14:00 | NUR ---
Zonia, at [facility], reports that they can accept the patient. DENISE informed the patient and patient's daughter, Rebeka. They are in agreeance to pursue going there upon discharge. DENISE updated Marco at [facility]. The patient is to discharge today, 11/01, to [facility]. Transportation to be by private car, via the patient's daughter. No additional needs at this time.
--- NOTE | 2018-11-01 18:35 | NUR ---
INT removed, catheter tip intact. No redness or swelling noted.
--- NOTE | 2018-11-01 18:35 | NUR ---
Called [facility] and gave report.
--- NOTE | 2018-11-01 19:53 | NUR ---
Daughter at bedside. All discharge paperwork given. Pt take out via wheelchair by [facility] staff.
--- NOTE | 2018-11-01 19:56 | NUR ---
PT LEFT IN PRIVATE VEHICLE WITH GRANDDAUGHTER, ASSISTED OUT X3. PT WAS A/O X4, AND HAD ALL HIS PERSONAL BELONGINGS WITH HIM. PT GOING TO [facility] FOR CARE. PT LEFT IN HOSPITAL GOWN AND BLANKET PER HIS REQUEST AND GRANDDAUGHTER, OFFERED TO DRESS HIM BUT HE REFUSED. PT LEFT ABOUT 1950 THIS EVENING.
[2018-11-02 02:16] LABS: RHEUMATOID FACTOR-SCREEN 26 IU/mL (0-29)
[2018-11-05 17:18] LABS: ANGIOTENSIN CONVERTING ENZYME 29 U/L (16 - 85)
[2018-11-05 21:11] LABS: C-ANCA 8 U/mL (0-99)
[2018-11-06 00:21] LABS: ANA SCREEN with REFLEX Negative (Negative)
== END 2018-11-01 19:50 | disposition swing bed (61) | DRG 291 ==
LOC: MEDICAL 05:19
PROVIDERS: Internal Medicine Pulmonary Disease; Nurse Practitioner Family; ADMIT Hospitalist
DX: I11.0 Hypertensive heart disease with heart failure (principal); J96.01 Acute respiratory failure with hypoxia; L97.429 Non-pressure chronic ulcer of left heel and midfoot with unspecified severity; L97.419 Non-pressure chronic ulcer of right heel and midfoot with unspecified severity; E44.1 Mild protein-calorie malnutrition; I50.33 Acute on chronic diastolic (congestive) heart failure; E11.621 Type 2 diabetes mellitus with foot ulcer; Z79.01 Long term (current) use of anticoagulants; G20 Parkinson's disease; E11.65 Type 2 diabetes mellitus with hyperglycemia; F02.80 Dementia in other diseases classified elsewhere, unspecified severity, without behavioral disturbance, psychotic disturbance, mood disturbance, and anxiety; I27.22 Pulmonary hypertension due to left heart disease; Z89.421 Acquired absence of other right toe(s); Z85.828 Personal history of other malignant neoplasm of skin; Z79.4 Long term (current) use of insulin; I35.0 Nonrheumatic aortic (valve) stenosis; E78.5 Hyperlipidemia, unspecified; K21.9 Gastro-esophageal reflux disease without esophagitis; Z68.30 Body mass index [BMI] 30.0-30.9, adult
CPT/HCPCS: 99222-AI; 99233-AI; 99239; J1815; J1940; J2704

== ENCOUNTER → 2018-10-30 | Outpatient (REF) ==
[~2018-10-30] MED LIST changes: +ALBUTEROL0.83 MG/ML IH; +DEEP SEA 45 ML45 ML NS; +GLUCOTROL 5M5 MG/TAB PO; +LASIX 40MG TABL40 MG PO; +LEVEMIR100 U/ML SQ; +LOZOL 2.5M2.5 MG/TAB PO; +MELAT3MGTAB PO; +MEVACOR40 MG PO; +MULTIPLE VITAMI1 CAP PO; +PROTONIX 40MG T40 MG PO; +TOPROL XL 25MG25 MG PO; +VENELEX OINTMEN60 GM TOP; +VITAMIN C500 MG PO; +XARELTO20 MG PO; +ZOLOFT 100MG100 MG PO
== END ==
LOC: ZLAB.WCH 09:10
DX: Z01.89 Encounter for other specified special examinations (principal)